=== PATIENT | male | born 1935 | race American Indian/Alaskan Native ===

== ENCOUNTER 2021-07-01 11:29 | Emergency (ER) | payer MEDICARE ==
[2021-07-01 11:44] VITALS: BP 149/83
[2021-07-01] MEDS ORDERED: SODIUM CHLORIDE 0.9% 500 ML 500 ML IV ONE (13:12)
[2021-07-01] MEDS ORDERED: PANTOPRAZOLE 40 MG INJ IV ONE (13:13)
[2021-07-01] MEDS ORDERED: ONDANSETRON 4 MG/2 ML INJ IV ONE (13:13)
[2021-07-01] MEDS ORDERED: ACETAMINOPHEN 325 MG TAB PO ONE (13:13)
--- NOTE | 2021-07-01 13:14 | Emergency Department Report ---
ED General Adult HPI - General Chief complaint: Abdominal Pain Stated complaint: ABD PAIN PUI?: No Time Seen by Provider: 07/01/21 13:02 Source: patient, family, RN notes reviewed Mode of arrival: Ambulatory Limitations: No Limitations - History of Present Illness Initial comments: The patient was evaluated in the emergency department for symptoms described in the history of present illness. He/she was evaluated in the context of the global COVID-19 pandemic, which necessitated consideration that the patient might be at risk for infection with the virus that causes COVID-19. Institutional protocols and algorithms that pertain to the evaluation of patients at risk for COVID-19 are in a state of rapid change based on inf ormation released by regulatory bodies including the CDC and federal and state organizations. These policies and algorithms were followed during the patient's care in the emergency department. Please note that these policies, procedures and recommendations changed on a rapid basis. The patient is an 85-year-old gentleman. He presents to the ER today with a complaint of left-sided abdominal pressure and pain. His pain increases when sitting up. It decreases with lying flat. He denies additional injuries and complaints. He did endorse nonspecific urinary "funny feeling", as well as testicular pressure. -: Gradual, hour(s) Location: abdomen Radiation: non-radiation Consistency: intermittent Improves with: other Worsens with: other - Related Data Previous Rx's Medication Instructions Recorded Last Taken Type Acetaminophen [Non-Aspirin Extra 500 mg PO Q6HR PRN #30 tablet 07/01/21 Unknown Rx Strength] Ibuprofen [Motrin] 200 mg PO Q6H PRN #30 tablet 07/01/21 Unknown Rx Ondansetron [Zofran Odt] 4 mg PO Q8HR PRN #20 tab.rapdis 07/01/21 Unknown Rx Allergies Allergy/AdvReac Type Severity Reaction Status Date / Time No Known Allergies Allergy Verified 07/01/21 11:44 ED Review of Systems ROS: Stated complaint: ABD PAIN Other details as noted in HPI Constitutional: denies: fever Eyes: denies: eye discharge ENT: denies: epistaxis Respiratory: denies: cough Cardiovascular: denies: chest pain Gastrointestinal: abdominal pain. denies: vomiting, hematemesis, melena, hematochezia Genitourinary: as per HPI Neurological: denies: weakness ED Past Medical Hx - Medications Home Medications: Home Medications Medication Instructions Recorded Confirmed Last Taken Type Acetaminophen [Non-Aspirin Extra 500 mg PO Q6HR PRN #30 tablet 07/01/21 Unknown Rx Strength] Ibuprofen [Motrin] 200 mg PO Q6H PRN #30 tablet 07/01/21 Unknown Rx Ondansetron [Zofran Odt] 4 mg PO Q8HR PRN #20 tab.rapdis 07/01/21 Unknown Rx ED Physical Exam - General Limitations: Other (Patient is hard of hearing) General appearance: alert, in no apparent distress - Head Head exam: Present: atraumatic, normocephalic - Eye Eye exam: Present: normal appearance, EOMI. Absent: nystagmus - ENT ENT exam: Present: normal exam, normal orophraynx, mucous membranes moist, normal external ear exam - Neck Neck exam: Present: normal inspection, full ROM. Absent: tenderness, meningismus - Respiratory Respiratory exam: Present: normal lung sounds bilaterally. Absent: respiratory distress, wheezes, rales, rhonchi, stridor, decreased breath sounds - Cardiovascular Cardiovascular Exam: Present: regular rate, normal rhythm, normal heart sounds. Absent: bradycardia, tachycardia, irregular rhythm, systolic murmur, diastolic murmur, rubs, gallop - GI/Abdominal GI/Abdominal exam: Present: soft, tenderness, other (Left-sided abdominal tenderness.). Absent: distended, guarding, rebound, rigid, pulsatile mass - Rectal Rectal exam: Present: deferred - exam: Present: normal inspection, other (Chaperoned by transfer operator A Holstein). Absent: testicular tenderness External exam: Present: normal external exam, other (There is normal testicular lie. There is normal cremasteric reflex. There is no testicular tenderness. There is no testicular swelling) - Extremities Exam Extremities exam: Present: normal inspection, full ROM, pedal edema (1+ edema in the bilateral lower extremities), other (2+ pulses noted in the bilateral upper and lower extremities. There is no palpable cord. negative Homans sign. Muscular compartments are soft. The pelvis is stable.). Absent: calf tenderness - Back Exam Back exam: Present: normal inspection, full ROM. Absent: tenderness, CVA tenderness (R), CVA tenderness (L), paraspinal tenderness, vertebral tenderness - Neurological Exam Neurological exam: Present: alert, normal gait, other (No facial droop. Tongue midline. Extraocular movements intact bilaterally. Facial sensation intact to light touch in V1, V2, V3 distribution bilaterally. 5 and a 5 strength in 4 extremities. Sensation intact to light touch in 4 extremities.). Absent: motor sensory deficit - Psychiatric Psychiatric exam: Present: normal affect, normal mood - Skin Skin exam: Present: warm, dry, intact, normal color. Absent: rash ED Course Vital Signs 07/01/21 11:42 Temperature 98.6 F Pulse Rate 82 Respiratory 18 Rate Blood Pressure 149/83 [Left] O2 Sat by Pulse 100 Oximetry - Reevaluation(s) Reevaluation #1: 07/01/21 14:20 Differential diagnosis, include but not limited to: Colitis, diverticulitis, renal colic, constipation, obstruction Assessment and plan: Elderly 85-year-old gentleman presenting with left-sided nonspecific abdominal pain. He is afebrile, with reassuring vital signs. His physical exam significant for mild left-sided abdominal tenderness. Given extremely advanced age, we will obtain appropriate laboratory studies, CT scan of the abdomen pelvis, urinalysis and EKG, and reassess. We will treat his symptoms. I discussed this with the patient and family member/caregiver. They endorse understanding and are in agreement with the plan of care. Reassess after acquisition of diagnostics 07/01/21 15:49 Patient resting comfortably. He is in no acute distress. Abdomen soft and benign. Laboratory studies nonactionable. Urinalysis pending. CT scan abdomen pelvis suggest left-sided renal cyst, possibly collapsed, and left-sided inguinal hernia. Patient may follow-up with an outpatient primary care doctor, and or urologist for left-sided renal cyst. He can follow-up with an outpatient general surgeon for his left-sided inguinal hernia. Discharged with appropriate pain medication. Return precautions reviewed. 07/02/21 06:55 Urinalysis unremarkable. Patient resting on stretcher, on cell phone, and asking to be discharged. ED Medical Decision Making - Lab Data Result diagrams: 07/01/21 13:26 07/01/21 13:26 Vital Signs 07/01/21 11:42 Temperature 98.6 F Pulse Rate 82 Respiratory 18 Rate Blood Pressure 149/83 [Left] O2 Sat by Pulse 100 Oximetry Lab Results 07/01/21 07/01/21 Range/Units 13:26 13:26 WBC 8.0 (4.5-11.0) K/mm3 RBC 4.77 (3.65-5.03) M/mm3 Hgb 13.6 (11.8-15.2) gm/dl Hct 44.2 (35.5-45.6) % MCV 93 (84-94) fl MCH 29 (28-32) pg MCHC 31 L (32-34) % RDW 15.2 (13.2-15.2) % Plt Count 286 (140-440) K/mm3 Lymph % (Auto) 18.7 (13.4-35.0) % [place] % (Auto) 9.0 H (0.0-7.3) % Eos % (Auto) 0.4 (0.0-4.3) % Baso % (Auto) 0.4 (0.0-1.8) % Lymph # (Auto) 1.5 (1.2-5.4) K/mm3 [place] # (Auto) 0.7 (0.0-0.8) K/mm3 Eos # (Auto) 0.0 (0.0-0.4) K/mm3 Baso # (Auto) 0.0 (0.0-0.1) K/mm3 Seg Neutrophils % 71.5 H (40.0-70.0) % Seg Neutrophils # 5.7 (1.8-7.7) K/mm3 Sodium 143 (137-145) mmol/L Potassium 4.2 (3.6-5.0) mmol/L Chloride 105.1 (98-107) mmol/L Carbon Dioxide 25 (22-30) mmol/L Anion Gap 17 mmol/L BUN 15 (9-20) mg/dL Creatinine 1.3 (0.8-1.3) mg/dL Estimated GFR 52 ml/min BUN/Creatinine Ratio 12 % Glucose 120 H (75-100) mg/dL Calcium 9.3 (8.4-10.2) mg/dL Total Bilirubin 0.60 (0.1-1.2) mg/dL Direct Bilirubin < 0.2 (0-0.2) mg/dL Indirect Bilirubin 0.4 mg/dL AST 27 (5-40) units/L ALT 18 (7-56) units/L Alkaline Phosphatase 47 (35-129) units/L Total Protein 7.3 (6.3-8.2) g/dL Albumin 3.7 L (3.9-5) g/dL Albumin/Globulin Ratio 1.0 % Lipase 9 L (13-60) units/L Lab Results 07/01/21 07/01/21 Range/Units 13:26 13:26 WBC 8.0 (4.5-11.0) K/mm3 RBC 4.77 (3.65-5.03) M/mm3 Hgb 13.6 (11.8-15.2) gm/dl Hct 44.2 (35.5-45.6) % MCV 93 (84-94) fl MCH 29 (28-32) pg MCHC 31 L (32-34) % RDW 15.2 (13.2-15.2) % Plt Count 286 (140-440) K/mm3 Lymph % (Auto) 18.7 (13.4-35.0) % [place] % (Auto) 9.0 H (0.0-7.3) % Eos % (Auto) 0.4 (0.0-4.3) % Baso % (Auto) 0.4 (0.0-1.8) % Lymph # (Auto) 1.5 (1.2-5.4) K/mm3 [place] # (Auto) 0.7 (0.0-0.8) K/mm3 Eos # (Auto) 0.0 (0.0-0.4) K/mm3 Baso # (Auto) 0.0 (0.0-0.1) K/mm3 Seg Neutrophils % 71.5 H (40.0-70.0) % Seg Neutrophils # 5.7 (1.8-7.7) K/mm3 Sodium 143 (137-145) mmol/L Potassium 4.2 (3.6-5.0) mmol/L Chloride 105.1 (98-107) mmol/L Carbon Dioxide 25 (22-30) mmol/L Anion Gap 17 mmol/L BUN 15 (9-20) mg/dL Creatinine 1.3 (0.8-1.3) mg/dL Estimated GFR 52 ml/min BUN/Creatinine Ratio 12 % Glucose 120 H (75-100) mg/dL Calcium 9.3 (8.4-10.2) mg/dL Total Bilirubin 0.60 (0.1-1.2) mg/dL Direct Bilirubin < 0.2 (0-0.2) mg/dL Indirect Bilirubin 0.4 mg/dL AST 27 (5-40) units/L ALT 18 (7-56) units/L Alkaline Phosphatase 47 (35-129) units/L Total Protein 7.3 (6.3-8.2) g/dL Albumin 3.7 L (3.9-5) g/dL Albumin/Globulin Ratio 1.0 % Lipase 9 L (13-60) units/L - EKG Data -: EKG Interpreted by [place] EKG shows normal: sinus rhythm Rate: normal - EKG Data 07/01/21 14:21 The EKG is interpreted at 13: 20 Sinus rhythm, 72 bpm. Borderline leftward axis deviation, motion artifact, left ventricular hypertrophy. Abnormal EKG. Not a STEMI. Normal P wave axis. - Radiology Data Radiology results: pending, report reviewed, [place] [address] Cat Scan Report Signed Patient: MUNIRA BLANCAS MR#: [id number] : 1935 Acct:[id number] Age/Sex: 85 / M ADM Date: 07/01/21 Loc: ED Attending Dr: Ordering Physician: ALLYSON LEPE MD Date of Service: 07/01/21 Procedure(s): CT abdomen pelvis w con Accession Number(s): [id number] cc: ALLYSON LEPE MD CT ABDOMEN AND PELVIS WITH CONTRAST INDICATION / CLINICAL INFORMATION: acute abd pain, left sided left flank. TECHNIQUE: Axial CT images were obtained through the abdomen and pelvis after Omnipaque 300, 100 cc IV [address] All CT scans at this location are performed using CT dose reduction for ALARA by means of automated exposure control. COMPARISON: None available. FINDINGS: LOWER CHEST: No significant abnormality. LIVER: No significant abnormality. GALLBLADDER: No significant abnormality. BILE DUCTS: No significant abnormality. PANCREAS: No significant abnormality. SPLEEN: No significant abnormality. ADRENALS: No significant abnormality. RIGHT KIDNEY / URETER: 2.8 cm cyst lower pole. LEFT KIDNEY / URETER: Left renal cysts with the largest measuring 4.8 cm. Probable cyst collapsed cysts arising from the lower pole. STOMACH / SMALL BOWEL: Fundal gastric diverticulum posteriorly. No bowel distention. COLON: No significant abnormality. APPENDIX: No significant abnormality. PERITONEUM: Mild pelvic free fluid. No free air. No fluid collection. LYMPH NODES: No significant adenopathy. VASCULAR STRUCTURES: No significant abnormality. URINARY BLADDER: No significant abnormality. REPRODUCTIVE ORGANS: No significant abnormality. ADDITIONAL FINDINGS: Moderate size fat-containing left inguinal hernia. SKELETAL SYSTEM: No significant abnormality. IMPRESSION: 1. Suspect ruptured left renal cyst inferiorly. 2. Moderate fat-containing left inguinal hernia. Signer Name: Maverick Chatterjee MD Signed: 07/01/2021 3:25 PM Workstation Name: [id number] Transcribed By: LAURA Dictated By: Maverick Chatterjee MD Electronically Authenticated By: Maverick Chatterjee MD Signed Date/Time: 07/01/21 152 DD/ 17 Critical care attestation.: If time is entered above; I have spent that time in minutes in the direct care of this critically ill patient, excluding procedure time. ED Disposition Clinical Impression: Renal cyst, left, Inguinal hernia, left, Left sided abdominal pain Disposition: HOME / SELF CARE / HOMELESS Is pt being admited?: No Does the pt Need Aspirin: No Condition: Good Instructions: Inguinal Hernia, Adult Additional Instructions: Do not take metformin medication for the next 2 days, if patient takes this medication. Patient may take the prescribed pain medication and nausea medication as needed and directed. Patient should follow-up with a primary care doctor or urologist for left-sided kidney cyst within the next 5 to 7 days. P atient should follow-up with her primary care doctor or surgeon for left-sided inguinal hernia within the next month. Please return to the emergency room right away with new pain, worsened pain, migration of pain, projectile vomiting, change in mental status, confusion, inability tolerate liquid feeds, new, worsened or different symptoms not present on the initial emergency room evaluation Dr. Tejada is a local primary care doctor. Dr. Coley is a local general surgeon. Dr. Ramirez is a local urologist/kidney surgeon. Prescriptions: Ibuprofen [Motrin] 200 mg PO Q6H PRN #30 tablet PRN Reason: Pain , Severe (7-10) Acetaminophen [Non-Aspirin Extra Strength] 500 mg PO Q6HR PRN #30 tablet PRN Reason: Pain , Severe (7-10) Ondansetron [Zofran Odt] 4 mg PO Q8HR PRN #20 tab.rapdis PRN Reason: Nausea Referrals: PRIMARY CARE, [Primary Care Provider] - 3-5 Days MELISSA RAMIREZ MD [Staff Physician] - 3-5 Days BRAYDEN COLEY MD [Staff Physician] - 3-5 Days ELÍAS TEJADA MD [Staff Physician] - 3-5 Days
[2021-07-01 13:40] LABS: Basophils % (Auto) 0.4 % (0.0-1.8); Eosinophils % (Auto) 0.4 % (0.0-4.3); Lymphocytes # (Auto) 1.5 K/mm3 (1.2-5.4); Lymphocytes % (Auto) 18.7 % (13.4-35.0); Mean Corpuscular HGB Conc 31 % (32-34); Mean Corpuscular Volume 93 fl (84-94); Monocytes # (Auto) 0.7 K/mm3 (0.0-0.8); Platelet Count 286 K/mm3 (140-440); Red Blood Count 4.77 M/mm3 (3.65-5.03); Red Cell Distribution Width 15.2 % (13.2-15.2)
[2021-07-01 13:41] LABS: Hematocrit 44.2 % (35.5-45.6); Hemoglobin 13.6 gm/dl (11.8-15.2)
[2021-07-01 13:58] LABS: Alanine Aminotransferase 18 units/L (7-56); Albumin 3.7 g/dL (3.9-5); BUN/Creatinine Ratio 12; Blood Urea Nitrogen 15 mg/dL (9-20); Calcium 9.3 mg/dL (8.4-10.2); Hemolysis Index 4
[2021-07-01 14:03] LABS: Bilirubin,Direct < 0.2 mg/dL (0-0.2)
--- NOTE | 2021-07-01 15:29 | Cat Scan Report ---
CT ABDOMEN AND PELVIS WITH CONTRAST INDICATION / CLINICAL INFORMATION: acute abd pain, left sided left flank. TECHNIQUE: Axial CT images were obtained through the abdomen and pelvis after Omnipaque 300, 100 cc I V contrast. All CT scans at this location are performed using CT dose reduction for ALARA by means o f automated exposure control. COMPARISON: None available. FINDINGS: LOWER CHEST: No significant abnormality. LIVER: No significant abnormality. GALLBLADDER: No significant abnormality. BILE DUCTS: No significant abnormality. PANCREAS: No significant abnormality. SPLEEN: No significant abnormality. ADRENALS: No significant abnormality. RIGHT KIDNEY / URETER: 2.8 cm cyst lower pole. LEFT KIDNEY / URETER: Left renal cysts with the largest measuring 4.8 cm. Probable cyst collapsed cys ts arising from the lower pole. STOMACH / SMALL BOWEL: Fundal gastric diverticulum posteriorly. No bowel distention. COLON: No significant abnormality. APPENDIX: No significant abnormality. PERITONEUM: Mild pelvic free fluid. No free air. No fluid collection. LYMPH NODES: No significant adenopathy. VASCULAR STRUCTURES: No significant abnormality. URINARY BLADDER: No significant abnormality. REPRODUCTIVE ORGANS: No significant abnormality. ADDITIONAL FINDINGS: Moderate size fat-containing left inguinal hernia. SKELETAL SYSTEM: No significant abnormality. IMPRESSION: 1. Suspect ruptured left renal cyst inferiorly. 2. Moderate fat-containing left inguinal hernia. Signer Name: Maverick Chatterjee MD Signed: 07/01/2021 3:25 PM Workstation Name: [id number]
[2021-07-01 16:18] LABS: Bilirubin,Urine NEG (Negative); Blood,Urine NEG (Negative); Color,Urine Yellow (Yellow); Hyaline Casts,Urine 4 /LPF; Mucus,Urine 2+ /HPF; Protein,Urine <15 mg/dL mg/dL (Negative); Urobilinogen,Urine < 2.0 mg/dL (<2.0)
--- NOTE | 2021-07-02 08:49 | Electrocardiograph Report ---
[facility] Test Date: 2021-07-01 Test Time: 13:20:55 Pat Name: MUNIRA BLANCAS Department: Room: Gender: M Program Scheduler: BABAK : 1935 Requested By: ALLYSON LEPE Order Number: [id number] Reading MD: Agustín López Measurements Intervals [place] Rate: 72 P: 56 [place]: 142 QRS: -4 QRSD: 96 T: 44 QT: 390 QTc: 428 Interpretive Statements Sinus rhythm No previous ECG available for comparison Electronically Signed On 07-02-2021 8:49:09 EST by Agustín López
== END 2021-07-01 16:40 | disposition home or self-care (01) ==
LOC: ED 11:29
DX: N28.1 Cyst of kidney, acquired (principal); K40.90 Unilateral inguinal hernia, without obstruction or gangrene, not specified as recurrent; R10.9 Unspecified abdominal pain
CPT/HCPCS: 36415; 74177; 80048; 80076; 81001; 83690; 85025; 93005; 93010; 96374; 96375; 99284; C9113; J2405; J7040; Q9967